=== PATIENT | female | born 1955 | race Caucasian/White ===

== ENCOUNTER → 2018-03-15 10:13 | Outpatient (CLI) | payer BC, SELFPAY | PROVIDERS: Family Provider Physician Assistant; PCP Physician Assistant; Visit Provider Physician Assistant | DX: M85.88 Other specified disorders of bone density and structure, other site (principal); Z78.0 Asymptomatic menopausal state; Z82.62 Family history of osteoporosis; Z87.891 Personal history of nicotine dependence | CPT/HCPCS: 77080 ==

== ENCOUNTER → 2018-10-18 07:50 | Outpatient (CLI) | payer BC, SELFPAY ==
--- NOTE | 2018-10-18 | DI.MG.S_ITS ---
BILATERAL DIGITAL DIAGNOSTIC MAMMOGRAM 3D/2D WITH AUGMENTATION: 10/18/2018 CLINICAL: Right breast discomfort. Comparison is made to exams dated: 10/27/2017 mammogram, 08/09/2016 mammogram, and 05/26/2015 mammogram - [facility]. There are prepectoral silicone implants in place which appear stable in size and morphology compared to priors. There are scattered fibroglandular elements in both breasts. In the patient's area of discomfort in the lateral right breast, no mammographic abnormalities. No significant masses, calcifications, or other findings are seen in either breast. IMPRESSION: INCOMPLETE: NEEDS ADDITIONAL IMAGING EVALUATION No mammographic abnormalities in the area of right breast pain. Further evaluation with ultrasound is recommended, and was performed immediately following this exam. No mammographic evidence of malignancy in either breast. This exam was interpreted at Station ID: [id number]. NOTE: For mammograms, a report in lay terms will be sent to the patient. Approximately 15% of breast malignancies will not be visualized mammographically. In the management of a palpable breast mass, a negative mammogram must not discourage biopsy of a clinically suspicious lesion. Electronically Signed By: Marlene montelongo/:10/18/2018 09:53:16 ACR BI-RADS Category 0: Incomplete [id number]
--- NOTE | 2018-10-18 07:51 | DI.US.S_ITS ---
LIMITED ULTRASOUND OF RIGHT BREAST: 10/18/2018 CLINICAL: Focal right breast pain. Comparison is made to exams dated: 10/18/2018 mammogram, 10/27/2017 mammogram, and 08/09/2016 mammogram - [facility]. Ultrasound of the right breast 7 o'clock region was performed. No abnormalities were seen sonographically in the right breast. Visible margin of implant appears intact. IMPRESSION: NEGATIVE No sonographic abnormalities to explain patients right breast discomfort. The underlying implant appears grossly intact on given images, but could be further evaluated with MRI if clinically indicated. There is no sonographic evidence of malignancy. A 1 year screening mammogram is recommended. Findings and recommendations conveyed to the patient. This exam was interpreted at Station ID: [id number]. Electronically Signed By: Marlene montelongo/:10/18/2018 09:56:58 letter sent: Normal Exam Ultrasound BI-RADS: 1 Negative
== END ==
PROVIDERS: Family Provider Physician Assistant; PCP Physician Assistant; Visit Provider Physician Assistant
DX: R92.8 Other abnormal and inconclusive findings on diagnostic imaging of breast (principal); N64.4 Mastodynia; Z98.82 Breast implant status
CPT/HCPCS: 76642; 77066; G0279

== ENCOUNTER → 2018-11-02 07:58 | Outpatient (CLI) | payer BC, SELFPAY ==
[2018-11-02 08:22] LABS: WBC Urine None Seen (0-5/HPF)
[2018-11-02 09:11] LABS: Hematocrit 37.6 % (36-46); Hemoglobin 13.2 g/dL (12.0-16.0); Mean Corpuscular Hemoglobin 30.4 PG (26-34); Mean Corpuscular Volume 86.9 fL (80-100); Platelet Count 220 X10^3/uL (150-400); Red Blood Cell Count 4.33 X10^6/uL (4.0-5.2); Red Cell Distribution Width 12.7 % (11.6-14.8)
[2018-11-02 09:17] LABS: HEMOLYSIS < 15 (0-50); Sodium 138 mmol/L (137-145)
[2018-11-02 09:18] LABS: Alanine Aminotransferase 31 IU/L (9-52); Albumin 4.5 g/dL (3.5-5.0); Albumin Globulin Ratio 1.8 (1.0-2.8); Alkaline Phosphatase 45 U/L (38-126); Aspartate Aminotransferase 27 IU/L (14-36); BUN Creatinine Ratio 18.6 (6-22); Bilirubin Total 0.5 mg/dL (0.2-1.3); Blood Urea Nitrogen 13 mg/dL (7-17); Calcium 9.2 mg/dL (8.4-10.2); Carbon Dioxide 26 mmol/L (22-32); Chloride 103 mmol/L (98-107); Cholesterol 195 mg/dL (140-199); Estimated Glomerular Filt Rate > 60.0 mL/min (>60); Globulin 2.5 g/dL (1.7-4.1); Glucose 93 mg/dL (80-110); HDL Cholesterol 99 mg/dL (40-60); LDL Cholesterol Calculated 88 mg/dL (<100); Potassium 4.1 mmol/L (3.4-5.1); Triglycerides 38 mg/dL (35-150)
[2018-11-02 10:30] LABS: Vitamin D 25 Hydroxy (D3) 41.6 ng/mL (30.0-100.0)
[2018-11-02 10:44] LABS: Thyroid Stimulating Hormone 1.61 uIU/mL (0.47-4.68)
[2018-11-02 11:29] LABS: Appearance Urine UA CLEAR; Bilirubin Urine UA NEGATIVE (NEGATIVE); Color Urine UA YELLOW; Glucose Urine UA NEGATIVE (Negative); Ketones Urine UA NEGATIVE (NEGATIVE); Leukocyte Esterase Urine UA NEGATIVE (NEGATIVE); Nitrite Urine UA NEGATIVE (Negative); Occult Blood Urine UA TRACE-INTACT (Negative); Protein Urine UA NEGATIVE (Negative); Urobilinogen Urine UA 0.2 E.U./dL (0.2); pH Urine UA 6.5 (4.5-8.0)
[2018-11-02 11:41] LABS: RBC Urine 1-5/HPF (0-5/HPF); Squamous Epithelial Cell Urine 5-10 /HPF (0-5/HPF)
[2018-11-02 11:42] LABS: Amorphous Sediment Urine 2+; Bacteria Urine Moderate (10-30); Culture Indicated Urine Cult Not Indicated
[2018-11-02 11:43] LABS: Neutrophils Absolute Manual 2040 /uL (3000-5900); Total Cells Counted 100
[2018-11-02 11:44] LABS: RBC Morphology Normal Morphology
--- NOTE | 2018-11-02 13:42 | DI.MRI.S_ITS ---
BREAST MRI OF BOTH BREASTS: 11/02/2018 CLINICAL: Right breast implant rupture. PROCEDURE: MR BREAST BI WO/W CON INDICATIONS: Concern that implant may be leaking (right breast) TECHNIQUE: The patient was placed prone in a dedicated breast imaging coil. Precontrast axial STIR and 3D FLASH without fat saturation sequences were obtained. Both before and after bolus injection of contrast, sequential 1-minute axial 3D FLASH with fat saturation sequences for 3 time points, with subtraction images and maximum intensity projections (MIP's) generated. Delayed sagittal FLASH images with fat saturation were also obtained. Computer-aided detection, including computer algorithm analysis of MRI image data for lesion detection and characterization, pharmacokinetic analysis, with further physician review for interpretation, was performed. COMPARISON: [facility], , US BREAST RT LIMITED, 10/18/2018, 9:29. [facility], , MM DIAGNOSTIC MAMMO IMPLANT BI, 10/18/2018, 8:21. FINDINGS: Image quality: Excellent. There is minimal background parenchymal enhancement. Right breast: No suspicious enhancement or mass lesions of the right breast. There is a linguine sign within the right breast consistent with intracapsular rupture. The implant appears completely decompressed. Left breast: No suspicious mass lesions or enhancement. The left breast implant is intact. Miscellaneous: A visualized portions of the lungs, mediastinum, heart, and upper abdomen are grossly unremarkable. No axillary adenopathy. The no intramammary adenopathy. IMPRESSION: NEGATIVE 1. Intracapsular rupture of the right breast implant. 2. No suspicious enhancement of the bilateral breasts to suggest neoplasm. A 1 year screening mammogram is recommended. This exam was interpreted at Station ID: [id number]. Electronically Signed By: Esperanza Jain M.D. lk/:11/02/2018 16:42:31 ACR BI-RADS Category 1: Negative [id number]
== END ==
PROVIDERS: Family Provider Internal Medicine; PCP Physician Assistant; Visit Provider Physician Assistant
DX: Z00.00 Encounter for general adult medical examination without abnormal findings (principal); M89.9 Disorder of bone, unspecified; N64.4 Mastodynia; T85.43XA Leakage of breast prosthesis and implant, initial encounter; Z98.82 Breast implant status; T85.41XA Breakdown (mechanical) of breast prosthesis and implant, initial encounter
CPT/HCPCS: 36415; 77049; 80053; 80061; 81001; 82306; 84443; 85025; A9579

== ENCOUNTER → 2020-01-14 19:39 | Outpatient (ROUT) | payer MEDICARE, SELFPAY ==
[2020-01-14 20:03] LABS: Alanine Aminotransferase 28 IU/L (<35); Albumin 4.7 g/dL (3.5-5.0); Alkaline Phosphatase 53 U/L (38-126); Aspartate Aminotransferase 35 IU/L (14-36); BUN Creatinine Ratio 20.3 (6-22); Bilirubin Total 0.5 mg/dL (0.2-1.3); Blood Urea Nitrogen 12 mg/dL (7-17); Calcium 9.7 mg/dL (8.4-10.2); Carbon Dioxide 26 mmol/L (22-32); Chloride 104 mmol/L (98-107); Estimated Glomerular Filt Rate > 60.0 mL/min (>60); Globulin 2.4 g/dL (1.7-4.1); Glucose 95 mg/dL (80-110); HEMOLYSIS < 15 (0-50); Potassium 4.3 mmol/L (3.4-5.1); Sodium 137 mmol/L (137-145); Total Protein 7.1 g/dL (6.3-8.2)
[2020-01-14 20:14] LABS: Vitamin D 25 Hydroxy (D3) 48.7 ng/mL (30.0-100.0)
== END ==
PROVIDERS: Family Provider Internal Medicine; PCP Physician Assistant; Visit Provider Internal Medicine
DX: M89.9 Disorder of bone, unspecified (principal)
CPT/HCPCS: 80053; 82306

== ENCOUNTER → 2020-03-26 13:59 | Outpatient (CLI) | payer MEDICARE, SELFPAY | PROVIDERS: Family Provider Internal Medicine; PCP Physician Assistant; Referring Provider Internal Medicine; Visit Provider Physician Assistant | DX: Z13.820 Encounter for screening for osteoporosis (principal); Z78.0 Asymptomatic menopausal state; Z82.62 Family history of osteoporosis; Z87.891 Personal history of nicotine dependence | CPT/HCPCS: 77080 ==